=== PATIENT | female | born 1980 | race African-American/Black ===

== ENCOUNTER 2020-12-25 12:44 | Emergency (ER) | payer OTHER, SELFPAY ==
[~2020-12-25] VITALS: Ht 162.6 cm; Wt 59.0 kg
[2020-12-25 12:55] VITALS: BP_SYST 120
--- NOTE | 2020-12-25 12:55 | NUR ---
Patient to ER bed 6 to gown for evaluation. Side rails up. Report given to Richelle CAMPBELL.
--- NOTE | 2020-12-25 12:59 | NUR ---
Pt. came in using pen and paper to write, states can't talk because throat hurts so Bad, "stabbing pain", feels like being choked. Went to urgent care and was given prednisone but has no improvement.
--- NOTE | 2020-12-25 13:15 | NUR ---
Pt. states cant breathe, placed on monitor O2sat 99%, pulse 63, RR 19
--- NOTE | 2020-12-25 13:20 | NUR ---
ER at bedside examining patient.
--- NOTE | 2020-12-25 13:43 | NUR ---
# 20 gauge angiocath placed to Right AC. Use of asceptic technique. Opsite placed over site. Blood return noted. Blood for lab drawn from site. Flushed with 10 cc of normal saline. No evidence of infiltration noted. Patient tolerated well.
[2020-12-25 13:49] LABS: BASOPHILS % (AUTO) 0.4 % (0.0-2.0); EOSINOPHILS # (AUTO) 0.1 K/uL (0.0-0.4); EOSINOPHILS % (AUTO) 0.6 % (0.0-4.0); HEMATOCRIT 35.8 % (36-48); HEMOGLOBIN 11.5 g/dL (12.0-16.0); LYMPHOCYTES # (AUTO) 4.6 K/uL (1.0-5.5); LYMPHOCYTES % (AUTO) 44.4 % (20.5-51.5); MEAN CORPUSCULAR HEMOGLOBIN 27 pg (27-31); MEAN CORPUSCULAR HGB CONC 32 % (32-36); MEAN CORPUSCULAR VOLUME 85 fL (79.0-98.0); MONOCYTES % (AUTO) 9.9 % (1.7-9.3); NEUTROPHILS # (AUTO) 4.6 K/uL (1.8-7.7); NEUTROPHILS % (AUTO) 44.7 % (40.0-70.0); PLATELET COUNT (AUTO) 327 K/uL (130-430); RED BLOOD CELL COUNT(AUTO) 4.23 MIL/uL (4.2-6.2); RED CELL DISTRIBUTION WIDTH 19.1 % (9.0-15.0); WHITE BLOOD COUNT (AUTO) 10.3 K/uL (4.8-10.8)
--- NOTE | 2020-12-25 13:59 | NUR ---
medicated for pain
[2020-12-25 14:00] LABS: CALCIUM 8.3 mg/dL (8.4-11.0); CREATININE 0.78 mg/dL (0.55-1.30); POTASSIUM 3.1 mmol/L (3.5-5.1)
[2020-12-25] MEDS ORDERED: KETOROLAC TROMETHAMINE 60 MG/2 ML VIAL IM ONE (14:00)
--- NOTE | 2020-12-25 14:05 | NUR ---
Patient transported to radiology via wheelchair, accompanied by staff.
[2020-12-25 14:07] LABS: ALBUMIN 3.8 g/dL (3.4-4.8); C-REACTIVE PROTEIN QUANT 0.4 mg/dL (0-0.5); TOTAL BILIRUBIN 0.4 mg/dL (0.0-1.0)
[2020-12-25 14:28] LABS: PROTHROMBIN TIME 10.4 SECS (9.5-12.5)
--- NOTE | 2020-12-25 14:50 | NUR ---
Pt. writting notes stating struggling to breathe, O2 sats 99% RR 18
[2020-12-25] MEDS ORDERED: PSEU30TA36 PO (15:03)
[2020-12-25] MEDS ORDERED: IBUP-1969 PO (15:03)
[2020-12-25] MEDS ORDERED: HYDR-3917 PO (15:12)
[2020-12-25] MEDS ORDERED: PRED10TA PO (15:43)
--- NOTE | 2020-12-25 15:45 | NUR ---
Patient given refused discharge instructions. Dr. Mabry attempted to discuss with patient the results and treatment provided, pt. yelling and refused to listen. Patient in stable condition. patient refused ID arm band removal. IV catheter removed intact and dressing applied, no active bleeding. Rx. of [place], Sudafed, and Ibuprofen were sent to pharmacy. Pain Scale 3. Opportunity for questions provided. Medication side effect fact sheet printed, patient refused to take.
--- NOTE | 2020-12-25 15:47 | NUR ---
Pt. stated upset regarding care, spoke with Dr. boo and meteorologist in charge, refused to sign discharge papers, did remove SL.
[2020-12-25 15:49] VITALS: BP_SYST 130
== END 2020-12-25 15:45 | disposition home or self-care (01) ==
LOC: SED 12:44
DX: J02.9 Acute pharyngitis, unspecified (principal); R09.89 Other specified symptoms and signs involving the circulatory and respiratory systems; Z20.822 Contact with and (suspected) exposure to COVID-19
CPT/HCPCS: 36415; 70491; 76376; 80053; 83605; 84703; 85025; 85610; 85730; 86140; 86308; 87426; 96372; 99285; J1885; Q9967